=== PATIENT | male | born 1940 | race Two or more races ===

== ENCOUNTER 2019-07-30 06:00 | Day surgery (SDC) | payer OTHER ==
[~2019-07-30 06:00] MED LIST: ATENOLOL50 MG PO; COZAAR100 MG PO; GLIMEPIRIDE4 M1 PO; PROTONIX40 MG PO; SIMVASTATIN5 MG PO; SINGULAIR10 MG PO
[2019-07-30] MEDS ORDERED: PERCOCET 5-3251 EACH PO (09:14)
== END 2019-07-30 12:30 | disposition home or self-care (01) ==
LOC: CIR.AMB 06:00 → ADM 09:45 → CIR.AMB 12:30
DX: C20 Malignant neoplasm of rectum (principal)
CPT/HCPCS: 36561; C1751

== ENCOUNTER 2019-12-13 09:35 | Day surgery (SDC) | payer OTHER ==
[~2019-12-13 09:35] MED LIST changes: +PERCOCET 5-3251 EACH PO
== END 2019-12-13 15:10 | disposition home or self-care (01) ==
LOC: AMB-ENDOS 09:35 → EDBD 14:45 → AMB-ENDOS 15:10
PROVIDERS: ATTEND Surgery
DX: K62.89 Other specified diseases of anus and rectum (principal)

== ENCOUNTER 2019-12-23 16:01 | Inpatient (IN) | payer OTHER ==
[~2019-12-23] VITALS: Ht 157.5 cm; Wt 68.9 kg
[2020-01-06] MEDS ORDERED: METFORMIN HCL500 M3 PO (13:29)
[2020-01-15] MEDS ORDERED: PRILOSEC OTC20 MG PO (13:23)
[2020-01-15] MEDS ORDERED: PERCOCET 5-3251 EACH PO (13:23)
== END 2020-01-15 17:32 | disposition home or self-care (01) | DRG 331 ==
LOC: SURH 01-10 09:30 → SURG 01-11 05:55 → O/R 01-11 05:55 → SURG 01-11 13:02
PROVIDERS: ADMIT Surgery; ATTEND Surgery
PROC: 0D1B4Z4 Bypass Ileum to Cutaneous, Percutaneous Endoscopic Approach (ICD-10-PCS; 2020-01-11)
PROC: 07BC4ZX Excision of Pelvis Lymphatic, Percutaneous Endoscopic Approach, Diagnostic (ICD-10-PCS; 2020-01-11)
PROC: 0DJD8ZZ Inspection of Lower Intestinal Tract, Via Natural or Artificial Opening Endoscopic (ICD-10-PCS; 2020-01-11)
PROC: 4A12X4Z Monitoring of Cardiac Electrical Activity, External Approach (ICD-10-PCS; 2020-01-11)
PROC: 0DTP4ZZ Resection of Rectum, Percutaneous Endoscopic Approach (ICD-10-PCS; principal; 2020-01-11 07:00)
DX: C20 Malignant neoplasm of rectum (principal); E11.9 Type 2 diabetes mellitus without complications; I10 Essential (primary) hypertension; R00.0 Tachycardia, unspecified; Z79.4 Long term (current) use of insulin

== ENCOUNTER 2020-05-15 17:53 | Inpatient (IN) | payer OTHER ==
[~2020-05-15] VITALS: Ht 157.5 cm; Wt 59.9 kg
[~2020-05-15 17:53] MED LIST changes: +METFORMIN HCL500 M3 PO; +PRILOSEC OTC20 MG PO
[2020-05-29] MEDS ORDERED: GLIMEPIRIDE4 M1 (08:18)
[2020-05-30] MEDS ORDERED: PERCOCET 5-3251 EACH PO (13:50)
[2020-05-30] MEDS ORDERED: PRILOSEC OTC20 MG PO (13:51)
== END 2020-05-30 15:36 | disposition home or self-care (01) | DRG 330 ==
LOC: O/R 05-26 09:05 → SURH 05-26 09:05
PROVIDERS: ADMIT Surgery; ATTEND Surgery
PROC: 0DQB0ZZ Repair Ileum, Open Approach (ICD-10-PCS; principal; 2020-05-26 12:45)
DX: Z43.2 Encounter for attention to ileostomy (principal); C20 Malignant neoplasm of rectum; Z20.828 Contact with and (suspected) exposure to other viral communicable diseases

== ENCOUNTER 2020-05-22 05:32 | Day surgery (SDC) | payer OTHER | END 2020-05-22 09:50 | disposition home or self-care (01) | LOC: AMB-ENDOS 05:32 | PROVIDERS: ATTEND Surgery | DX: K62.89 Other specified diseases of anus and rectum (principal); Z20.828 Contact with and (suspected) exposure to other viral communicable diseases ==